=== PATIENT | male | born 1960 | race African-American/Black ===

== ENCOUNTER 2018-05-10 07:31 | Day surgery (SDC) | payer BC ==
[2018-05-09 08:32] VITALS: BMI 47.4
[2018-05-10] MEDS ORDERED: MIDAZOLAM HCL 2 MG/2 ML SINGLE DOSE VIAL ONE ×2 (09:09)
[2018-05-10] MEDS ORDERED: PROPOFOL 20 ML ONE (09:09)
[2018-05-10] MEDS ORDERED: DEXAMETHASONE SOD PHOSPHATE 4 MG/1 ML VIAL ONE (09:10)
[2018-05-10] MEDS ORDERED: ceFAZolin SODIUM 1 GM VIAL ONE (09:10)
[2018-05-10] MEDS ORDERED: SODIUM CHLORIDE 0.9% P/F 10 ML VIAL IJ ONE (09:10)
[2018-05-10] MEDS ORDERED: BUPIVACAINE 0.75% IN DEXTROSE/PF 2ML AMPULE NR ONE (09:24)
[2018-05-10] MEDS ORDERED: ceFAZolin SODIUM 1 GM VIAL IVPB ONE (09:45)
[2018-05-10] MEDS ORDERED: BUPIVACAINE HCL/PF (5 MG/ML) 30 ML VIAL IJ ONE (10:16)
[2018-05-10] MEDS ORDERED: LIDOCAINE HCL/PF 2% SDV 5ML VIAL ONE (10:33)
[2018-05-10] MEDS ORDERED: ONDANSETRON 4 MG/2 ML VIAL IVPUSH PRN (10:51)
[2018-05-10] MEDS ORDERED: oxyCODONE HCL 5 MG TABLET PO PRN (10:51)
--- NOTE | 2018-05-10 10:51 | HP ---
Satellite [facility] - Chief Complaint Chief Complaint: right knee pain History of Present Illness: right knee pain, internal derangement History Source: Patient Limitations to Obtaining History: No Limitations - Past Medical History Allergies/Adverse Reactions: Allergies Allergy/AdvReac Type Severity Reaction Status Date / Time iodine Allergy Intermediate Swelling Verified 05/10/18 08:01 seafood Allergy Intermediate Swelling Uncoded 05/10/18 08:01 - Current Medications Current Medications: Home Medications Medication Instructions Recorded Lisinopril/Hydrochlorothiazide 1 each PO DAILY 01/07/15 [Lisinopril-Hctz 10-12.5 mg Tab] Multivitamins [Tab-A-Vit -] 1 tab PO DAILY 01/07/15 Hydrocodone/Acetaminophen 1 - 2 tab PO TID PRN #40 tablet 05/10/18 [Hydrocodone-Acetamin 5-325 mg] MDD 6 Satellite Physical Exam - Physical Examination Vital Signs: Vital Signs Period Temp Pulse Resp BP Sys/Ruff Pulse Ox Last 24 Hr 98.5 F 79 20 146/87 97 General Appearance: Well Nourished ENT: Clear Lung: Clear to auscultation Heart: Regular rate & rhythm Breasts: Soft Abdomen: Soft Extremities: No edema Satellite Impression/Plan - Impression/Plan Impression: right knee pain, meniscus tears, OA Operative Procedure: right knee arthroscopy, partial medial and lateral meniscectomy, debridement chondroplasty, partial synovectomy Date to be Performed: 05/10/18
--- NOTE | 2018-05-10 10:53 | OP ---
Operative Note - Note: Operative Date: 05/10/18 Pre-Operative Diagnosis: right knee internal derangement, MM tear Operation: right knee arthroscopy, partial medial and lateral meniscectomy, debridement chondroplasty, partial synovectomy Post-Operative Diagnosis: Same as Pre-op Surgeon: Robert Burnett Anesthesiologist/ELECTRICAL REPAIRER: Ned Rome Anesthesia: General, Local Specimens Removed: shavings Estimated Blood Loss (mls): 0 Drains, Volume Out (mls): 0 Blood Volume Replaced (mls): 0 Fluid Volume Replaced (mls): 700 Operative Report Dictated: Yes
[2018-05-10] MEDS ORDERED: LACTATED RINGERS SOLUTION 1,000 ML IV SCH (11:00)
[2018-05-10] MEDS ORDERED: ONDANSETRON 4 MG/2 ML VIAL ONE (11:30)
[2018-05-10 11:58] VITALS: TEMP 97.8
[2018-05-10] MEDS ORDERED: oxyCODONE HCL 5 MG TABLET ONE (13:50)
[2018-05-10] MEDS ORDERED: oxyCODONE HCL 5 MG TABLET PO ONE (13:55)
--- NOTE | 2018-05-10 14:03 | OP ---
DATE OF OPERATION: 05/10/2018 PREOPERATIVE DIAGNOSIS: Right knee pain and meniscus tear. POSTOPERATIVE DIAGNOSIS: Medial and lateral meniscus tear, osteoarthritis, and synovitis. PROCEDURE: Right knee arthroscopy, partial medial and lateral meniscectomy, debridement chondroplasty and partial synovectomy. SURGEON: Robert Burnett MD DATA REPORT ANALYST: None. SAND SLINGER OPERATOR: Ned Rome CRNA ANESTHESIA: Spinal anesthesia with sedation. DRAINS: None. COMPLICATIONS: None. BLOOD LOSS: None. BLOOD GIVEN: None. FLUID REPLACEMENT: 700 mL Plasmalyte. This patient is a 57-year-old male with preoperative diagnosis of knee pain and a meniscus tear. After understanding the potential risks, complications, alternatives, and benefits of surgery versus nonsurgical treatment, the patient elected to undergo this procedure. DESCRIPTION OF PROCEDURE: The patient was brought to the operating room, peripheral IV placed, IV sedation given, 2 g of IV Ancef was given. Spinal anesthesia was induced. Additional anesthetic was applied as the patient was in the supine position, and the right lower extremity had ample padding placed and a tourniquet applied. The styrofoam ring and a C-clamp leg garcia were used. The right lower extremity was prepped and draped in sterile fashion, elevated, exsanguinated with Esmarch bandage and tourniquet inflated to 275 mmHg. A superomedial outflow portal was established. A lateral portal was established under direct visualization using arthroscope, and medial portal was established with spinal needle. . The patient had a complex tear of the posterior horn of the medial meniscus. This was debrided with the upbiting forceps and the curved shaver. The tear disrupted a significant parent of the hoop fibers of the posterior aspect of the medial meniscus. 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 This area was gently debrided. The intercondylar notch looked good. There was excessive synovitis. This was removed. After the synovectomy, the ACL tension was tested. It was seen to be appropriate. Additional synovitis was removed from the anterior aspect of the intercondylar notch area. A view into the lateral compartment showed that the lateral meniscus had a small tear. This was debrided with the curved shaver. The lateral femoral condyle and lateral tibial plateau looked okay, with perhaps grade 1 chondromalacia. Next, attention turned to the patellofemoral joint. The patient had significant large areas of grade 4 chondromalacia in both the femoral trochlea and the patella. The chondromalacia was gently debrided with the shaver. There was a lot of synovitis in this area, and a partial synovectomy was performed. The knee was put through a range of motion. The area was copiously irrigated and washed out, all instrumentation removed. Arthroscopy portals were closed with 3-0 nylon sutures. Additional Marcaine was injected into the joint and around the portal site of 8 mL 0.5% Marcaine. The area was washed, dried, covered with Xeroform, 4 x 4 gauze, Webril, and two 6-inch Arik bandages. The tourniquet was taken down after total tourniquet time of 20 minutes. There were no complications during the case. The patient tolerated the procedure quite well, was brought to the ambulatory recovery room in stable condition. Nicolas [id number]
[2018-05-10 15:27] VITALS: BP 146/85; PULSE 82
--- NOTE | 2018-05-11 15:20 | PATH ---
Surgical Pathology Report Patient Name: DEJUAN LOCKHART Med. Rec. #: [id number] /Age/Gender: 1960 (Age: 57) / M Account: [id number] Location: [facility] Taken: 05/10/2018 Received: 05/10/2018 Reported: 05/11/2018 Physicians: Robert Burnett M.D. Specimen(s) Received RIGHT KNEE SHAVINGS Clinical History Right knee tear internal derangement Final Diagnosis KNEE SHAVINGS, RIGHT, ARTHROSCOPY, PARTIAL MEDIAL AND LATERAL MENISCECTOMY, DEBRIDEMENT CHONDROPLASTY AND PARTIAL SYNOVECTOMY: FRAGMENTS OF CARTILAGE, DENSE FIBROCONNECTIVE TISSUE, ADIPOSE TISSUE, AND REACTIVE SYNOVIUM. Electronically Signed Kendy Barry M.D. Gross Description Received in formalin, labeled "right knee shavings," is a 5.0 x 5.0 x 0.4 cm. aggregate of canales-yellow soft tissue fragments. A life assurance representative portion is submitted in one cassette. /05/10/2018 [facility]05/10/2018
== END 2018-05-10 15:00 | disposition home or self-care (01) ==
LOC: JASU-SURG 07:31
PROVIDERS: ATTEND Orthopaedic Surgery
PROC: 0SBC4ZZ Excision of Right Knee Joint, Percutaneous Endoscopic Approach (ICD-10-PCS; 2018-05-10)
PROC: 0SBC4ZZ Excision of Right Knee Joint, Percutaneous Endoscopic Approach (ICD-10-PCS; 2018-05-10)
PROC: 0SBC4ZZ Excision of Right Knee Joint, Percutaneous Endoscopic Approach (ICD-10-PCS; principal; 2018-05-10 09:00)
DX: S83.241A Other tear of medial meniscus, current injury, right knee, initial encounter (principal); S83.281A Other tear of lateral meniscus, current injury, right knee, initial encounter; M17.11 Unilateral primary osteoarthritis, right knee; M65.9 Synovitis and tenosynovitis, unspecified
CPT/HCPCS: 88304-TC; 94760

== ENCOUNTER 2023-03-29 05:27 | Day surgery (SDC) | payer BC ==
[2023-03-25 11:37] VITALS: BMI 47.4
[2023-03-29 11:45] VITALS: TEMP 96.9
[2023-03-29 12:15] VITALS: BP 135/94; PULSE 71; RESP 18
== END 2023-03-29 12:36 | disposition home or self-care (01) ==
LOC: JASU-ENDO 05:27
PROVIDERS: ATTEND Internal Medicine Gastroenterology
PROC: 0DJD8ZZ Inspection of Lower Intestinal Tract, Via Natural or Artificial Opening Endoscopic (ICD-10-PCS; principal; 2023-03-29 11:00)
DX: Z12.11 Encounter for screening for malignant neoplasm of colon (principal); K64.8 Other hemorrhoids; K57.30 Diverticulosis of large intestine without perforation or abscess without bleeding; Z80.0 Family history of malignant neoplasm of digestive organs

== ENCOUNTER 2023-04-12 05:08 | Day surgery (SDC) | payer BC ==
[2023-04-07 16:32] VITALS: BMI 47.9
[2023-04-12 12:06] VITALS: TEMP 98.6
[2023-04-12 14:16] VITALS: BP 125/94; PULSE 77; RESP 18
[2023-04-13] MEDS ORDERED: PANTOPRAZOLE 40 MG TABLET PO SCH (10:00)
== END 2023-04-12 14:16 | disposition home or self-care (01) ==
LOC: JASU-ENDO 05:08
PROVIDERS: ATTEND Internal Medicine Gastroenterology
PROC: 0DB78ZX Excision of Stomach, Pylorus, Via Natural or Artificial Opening Endoscopic, Diagnostic (ICD-10-PCS; 2023-04-12)
PROC: 0DB68ZX Excision of Stomach, Via Natural or Artificial Opening Endoscopic, Diagnostic (ICD-10-PCS; 2023-04-12)
PROC: 0DB98ZX Excision of Duodenum, Via Natural or Artificial Opening Endoscopic, Diagnostic (ICD-10-PCS; principal; 2023-04-12 12:15)
DX: K29.50 Unspecified chronic gastritis without bleeding (principal); B96.81 Helicobacter pylori [H. pylori] as the cause of diseases classified elsewhere; K29.80 Duodenitis without bleeding
CPT/HCPCS: 36415; 82941

== ENCOUNTER 2024-07-16 05:27 | Day surgery (SDC) | payer BC ==
[2024-07-12 12:00] VITALS: BMI 47.4
[2024-07-16] MEDS: LIDOCAINE HCL 1%, 10 MG/ML (20ML VIAL) NR ONE
[2024-07-16] MEDS ORDERED: PROPOFOL 20 ML ONE (10:36)
[2024-07-16] MEDS ORDERED: LIDOCAINE HCL 1%, 10 MG/ML (20ML VIAL) ONE (10:55)
[2024-07-16] MEDS ORDERED: BUPIVACAINE HCL/PF 0.5% (5MG/ML) 10 ML VIAL ONE (10:55)
[2024-07-16] MEDS ORDERED: MIDAZOLAM HCL 2 MG/2 ML SINGLE DOSE VIAL ONE ×3 (11:01→12:18)
[2024-07-16] MEDS: ceFAZolin SODIUM 1 GM VIAL IVPB ONE ×2 (11:20)
[2024-07-16] MEDS ORDERED: LIDOCAINE HCL 2% (20ML MULTI-DOSE VIAL) ONE (11:33)
[2024-07-16] MEDS ORDERED: ceFAZolin SODIUM 1 GM VIAL ONE (12:08)
[2024-07-16] MEDS: LIDOCAINE HCL 2% (50ML VIAL) INF ONE ×2 (12:08)
[2024-07-16] MEDS ORDERED: oxyCODONE HCL 5 MG TABLET PO PRN (12:28)
[2024-07-16] MEDS ORDERED: LACTATED RINGERS SOLUTION 1,000 ML IV SCH (12:30)
[2024-07-16 16:51] VITALS: BP 177/94; PULSE 91; RESP 18; TEMP 97.1
== END 2024-07-16 15:40 | disposition home or self-care (01) ==
LOC: JASU-SURG 05:27
PROVIDERS: ATTEND Urology
PROC: 0VBF0ZZ Excision of Right Spermatic Cord, Open Approach (ICD-10-PCS; principal; 2024-07-16 09:45)
DX: N43.3 Hydrocele, unspecified (principal)
CPT/HCPCS: 88302-TC; 94760